=== PATIENT | female | born 1955 | race Asian ===

== ENCOUNTER 2020-05-17 12:55 | Outpatient (CLI) | payer MEDICAID ==
[~2020-05-17] VITALS: Ht 157.5 cm; Wt 54.0 kg
[2020-05-17 13:33] VITALS: BP 119/75
[2020-05-18] MEDS ORDERED: LORATADINE10 M2 PO (14:29)
[2020-05-18] MEDS ORDERED: ZYRTEC10 MG ORAL (14:29)
--- NOTE | 2020-05-18 19:00 | Consultation ---
DATE OF CONSULTATION: 05/17/2020 CONSULTING PHYSICIAN: Chai Darden MD CHIEF COMPLAINT: Referral for screening colonoscopy, abdominal pain. PAST MEDICAL HISTORY: GERD. PAST SURGICAL HISTORY: Oophorectomy, appendectomy. ALLERGIES: To penicillin. MEDICATIONS: Please see medication reconciliation list. FAMILY HISTORY: Nephew had esophageal cancer. SOCIAL HISTORY: The patient denies any tobacco, alcohol, or IV drug abuse. REVIEW OF SYSTEMS: The patient complained of some abdominal pain and fullness, some GERD. No prior history of endoscopy and colonoscopy. PHYSICAL EXAMINATION: VITAL SIGNS: Temperature 97.8, blood pressure 119/75, pulse 86, respirations 20. HEENT: Normocephalic and atraumatic. Sclerae anicteric. NECK: Supple. No evidence of obvious lymphadenopathy. CARDIOVASCULAR: Regular rhythm. Plus S1, S2. LUNGS: Clear to auscultation bilaterally. ABDOMEN: Positive bowel sounds. Soft and nontender. No rebound. No guarding. No peritoneal sign. EXTREMITIES: No cyanosis. No clubbing. No edema. ASSESSMENT AND PLAN: This 65-year-old female needs endoscopy and colonoscopy; endoscopy for chronic GERD, colonoscopy screening, and also for evaluation of abdominal pain. The patient was given instruction for EGD and colonoscopy. Risks and benefits of the procedure were explained to her. The patient will schedule when authorization is obtained. Chai Darden M.D. DR: Talha JOB#: [id number] CC:
== END 2020-05-17 15:05 | disposition home or self-care (01) ==
LOC: PAN 12:55
DX: K21.9 Gastro-esophageal reflux disease without esophagitis (principal); Z90.89 Acquired absence of other organs; Z88.0 Allergy status to penicillin; R10.9 Unspecified abdominal pain; Z90.721 Acquired absence of ovaries, unilateral
CPT/HCPCS: G0463

== ENCOUNTER 2020-07-07 12:25 | Outpatient (CLI) | payer MEDICAID ==
[~2020-07-07 12:25] MED LIST: LORATADINE10 M2 PO; ZYRTEC10 MG ORAL
[2020-07-07 12:40] VITALS: BP 114/73
--- NOTE | 2020-07-07 12:57 | General Progress Note ---
Subjective ROS Limited/Unobtainable: No Allergies: Coded Allergies: PENICILLINS (Verified Allergy, Unknown, 05/17/20) Objective Last 24 Hour Vital Signs Date Time Temp Pulse Resp B/P (MAP) Pulse Ox O2 Delivery O2 Flow Rate FiO2 07/07/20 12:40 97.8 80 16 114/73 98 General Appearance: alert EENT: normal ENT inspection Neck: supple Cardiovascular: normal rate Respiratory/Chest: decreased breath sounds Abdomen: normal bowel sounds, non tender, soft Extremities: non-tender Assessment/Plan Assessment/Plan: gastritis hemorrhoids s/p EGD and colonoscopy add ppi RTC 3 months Chai Darden MD Jul 07, 2020 12:57
== END 2020-07-07 14:25 | disposition home or self-care (01) ==
LOC: PAN 12:25
DX: K29.70 Gastritis, unspecified, without bleeding (principal); K64.9 Unspecified hemorrhoids; Z88.0 Allergy status to penicillin
CPT/HCPCS: 99212